=== PATIENT | male | born 1980 | race Caucasian/White ===

== ENCOUNTER 2017-01-07 08:45 | Inpatient (IN) | payer OTHER ==
[~2017-01-07] VITALS: Ht 172.7 cm; Wt 81.6 kg
[2017-01-08] MEDS ORDERED: CITA20TA11 PO (15:54)
[2017-01-08] MEDS ORDERED: METH20TA9 PO (15:56)
[2017-01-08 16:00] VITALS: BP 148/98
[2017-01-08 16:22] LABS: *AMPHETAMINE, URINE NEGATIVE (NEGATIVE); *BARBITURATE, URINE NEGATIVE (NEGATIVE); *CANNABINOID, URINE NEGATIVE (NEGATIVE); *COCCAINE, URINE NEGATIVE (NEGATIVE); *OPIATE, URINE NEGATIVE (NEGATIVE); *PHENCYCLIDINE SCREEN,URINE NEGATIVE (NEGATIVE)
[2017-01-08] MEDS ORDERED: THIAMINE HCL 200 MG/2 ML VIAL IM ONE (16:30)
[2017-01-08] MEDS ORDERED: MIRALAX 17 GM POWD.PACK PO PRN (16:30)
[2017-01-08] MEDS ORDERED: MAGNESIUM HYDROXIDE 30 ML LIQUID UDC PO PRN (16:30)
[2017-01-08] MEDS ORDERED: LOPERAMIDE HCL 2 MG CAPSULE PO PRN ×2 (16:30)
[2017-01-08] MEDS ORDERED: ONDANSETRON ODT 4 MG TAB.RAPDIS SL PRN (16:30)
[2017-01-08] MEDS ORDERED: ONDANSETRON 4 MG/2 ML VIAL IM PRN (16:30)
[2017-01-08] MEDS ORDERED: HYDROXYZINE PAMOATE 25 MG CAPSULE PO PRN (16:30)
[2017-01-08] MEDS ORDERED: MAG HYDROX/AL HYDROX/SIMETH 30 ML LIQUID UDC PO PRN (16:30)
[2017-01-08] MEDS ORDERED: CLONIDINE HCL 0.1 MG TABLET PO PRN (16:30)
[2017-01-08] MEDS ORDERED: LORAZEPAM 1 MG TABLET PO PRN ×2 (16:30)
[2017-01-08] MEDS ORDERED: IBUPROFEN 400 MG TABLET PO PRN (16:30)
[2017-01-08] MEDS ORDERED: ACETAMINOPHEN 325 MG TABLET PO PRN (16:30)
[2017-01-08] MEDS ORDERED: LORAZEPAM 2 MG/1 ML VIAL IM PRN (16:30)
[2017-01-08] MEDS ORDERED: DICYCLOMINE HCL 20 MG TABLET PO PRN (16:30)
--- NOTE | 2017-01-08 16:40 | NUR ---
ADMISSION NOTE Pt is a 36 year old male, admitted on 01/09/16 at 1600 for ETOH and Benzo Dependence and medically supervised withdrawals. Pts skin and body check completed, no contraband found, Pt has a small healed scab on his forehead. Pt awake, alert, oriented x 4, gait steady, pt is ambulatory without assistance. Pt weights 180 pounds and his height is 58. Denies any history of seizures. Pt escorted to room 320 where the rest of assessment was completed. Pt is primary source of information, information consistent, speech coherent. Pt brought home medications which have been reconciled. Pt refused PNA Vaccinations stating that he will receive it somewhere else. Pt states that he does not have a PCP and pt denies having a psychiatrist or a psychologist. Pt requested to be full code, regular diet on fall and seizure precautions, Pt denies any food allergies but states he is allergic to PNC. His last BM was on 01/07/17. Pt states that he lives in a house with his girlfriend. Pt denies smoking cigarettes. Pt denies being admitted to a hospital in the past 30 days, Pt is not a candidate for MRSA. Pts initial vital signs are BP: 1148/98, Temp: 98.3, Pulse: 89 SPO2: 98% RR:18 and states that he has 0/10 pain. Pts initial CIWA was a 3. Pt reports PMH of Anxiety, Depression, ADHD. Pts longest sobriety lasted 1 month which was from September 2015 to October 2015. Pt stated that he does not attend AA meetings. Pt reported family history of abuse, his grandfather from his mothers side was an alcoholic. Pt denies any suicidal or homicidal ideations. Substance use Hx: 1.ETOH Vodka/wine: Pt reported first drinking when he was 16 years of age, he has been drinking 1 bottle (750ml) of vodka daily for the past 4 weeks, his last use was on 01/07/17 and he stated that he drank 1 bottle of vodka. 2.Valium: Pt stated that he first used a Valium 3 months ago he has it prescribed to decrease his ETOH withdrawals, he reports taking 5mg occasionally . His last dose was today 5mg PO prior to arriving to facility. Rehab history: Pt denies any rehab history, it his first time in treatment. Pt cooperative, appears depressed, reports moderate anxiety. Educated on relaxation techniques (deep breathing) pt verbalized understanding. Pt denies SI/HI at this time, denies hallucinations. Skin warm and moist from sweat, color pink, consistent throughout the body. Eyes PERLLA, tremors not noted but felt. Pt denied tingling. All extremities with full ROM. Lung sounds clear bilaterally, no cough present, pt denies SOB. Heart rate regular. Cap refill <3 sec. No edema noted. Abdomen soft, round, bowel sounds active x 4, non tender. Pt denies urinary difficulties, urine was provided and sent to lab. Pt oriented to unit, room, equipment, shown how to use call light, provided returned demonstration. Fall precautions and seizure in place. Side rails up x2, call light within reach, bed locked in low position. MD contacted and aware of patients condition. All admitting orders have been placed, Pt will be on PRN Ativan for today. Pt is placed on a 5 day Ativan taper which starts tomorrow. Pt refused his Vitamin B injection. His Initial CIWA score was a 3.
[2017-01-08 17:45] LABS: BASOPHILS # (AUTO) 0.1 K/uL (0.0-8.0); BASOPHILS % (AUTO) 0.8 % (0.0-2.0); EOSINOPHILS # (AUTO) 0.1 K/uL (0.0-0.7); EOSINOPHILS % (AUTO) 1.6 % (0.0-7.0); ETHANOL < 3 MG/DL (0-0); HEMATOCRIT 44.5 % (36.7-47.1); HEMOGLOBIN 15.3 g/dL (12.5-16.3); LYMPHOCYTES % (AUTO) 13.6 % (20.5-51.5); MEAN CORPUSCULAR HEMOGLOBIN 30.1 uug (23.8-33.4); MEAN CORPUSCULAR HGB CONC 34 g/dL (32.5-36.3); MEAN CORPUSCULAR VOLUME 87.9 fL (73.0-96.2); MONOCYTES # (AUTO) 0.7 K/uL (2.0-10.0); MONOCYTES % (AUTO) 9.4 % (0.0-11.0); NEUTROPHILS # (AUTO) 5.4 K/uL (1.8-8.9); NEUTROPHILS % (AUTO) 74.6 % (38.5-71.5); PLATELET COUNT (AUTO) 207 K/uL (152-348); RED BLOOD CELL COUNT(AUTO) 5.07 MIL/uL (4.06-5.63); RED CELL DISTRIBUTION WIDTH 13.6 % (12.1-16.2); WHITE BLOOD COUNT (AUTO) 7.3 K/uL (3.6-10.2)
[2017-01-08 17:50] LABS: ALANINE AMINOTRANSFERASE 66 U/L (16-63); ALBUMIN 4.1 g/dL (3.4-5.0); ALKALINE PHOSPHATASE 94 U/L (50-136); AMYLASE 39 U/L (25-115); ASPARTATE AMINOTRANSFERASE 107 U/L (15-37); CALCIUM 9.1 mg/dL (8.5-10.1); CHLORIDE 97 mmol/L (98-107); CREATININE 1.2 mg/dL (0.6-1.3); GFR 68 mL/min (>60); GLUCOSE 125 mg/dL (74-106); LIPASE 129 U/L (73-393); MAGNESIUM 1.4 mg/dL (1.8-2.4); POTASSIUM 3.5 mmol/L (3.5-5.1); SODIUM SERUM 139 mmol/L (136-145); TOTAL PROTEIN, SERUM 7.9 g/dL (6.4-8.2); UREA NITROGEN, BLOOD 5 mg/dL (7-18)
[2017-01-08 17:51] LABS: CARBON DIOXIDE 34 mmol/L (21-32)
[2017-01-08 17:58] LABS: HIV-1 p24 ANTIGEN NON REACTIVE (NONREACTIVE); HIV-1/2 ANTIBODY NON REACTIVE (NONREACTIVE)
[2017-01-08 18:00] LABS: THYROID STIMULATING HORMONE 1.639 mIU/mL (0.358-3.740)
[2017-01-08] MEDS ORDERED: MAGNESIUM OXIDE 400 MG TABLET PO ONE ×2 (18:15→21:00)
--- NOTE | 2017-01-08 19:18 | NUR ---
End Of Shift Pt is a 36 year old male, admitted on 01/09/16 at 1600 for ETOH and Benzo Dependence and medically supervised withdrawals. Pt weights 180 pounds and his height is 58. Denies any history of seizures. Pt requested to be full code, regular diet on fall and seizure precautions, Pt denies any food allergies but states he is allergic to PNC. His last BM was on 01/07/17. Pt denies being admitted to a hospital in the past 30 days, . Pt's Last CIWA was a 3. Pt reports PMH of Anxiety, Depression, ADHD. Pt's longest sobriety lasted 1 month which was from September 2015 to October 2015. Pt is on PRN medications if needed for withdrawals, pt will start his 5 day Ativan taper tomorrow. pt received a one time dose of Mag-OX 800mg. all information passed on to retail shift leader nurse.
[2017-01-08 20:00] VITALS: BP 150/91
--- NOTE | 2017-01-08 20:00 | NUR ---
START OF SHIFT NOTE PATIENT IN ROOM, UPON GREETING, PATIENT STATES HE'S TIRED, REPORTS HOT AND COLD, SWEATING, ANXIOUS , GENERALIZED BODY ACHES 5/10. PATIENT HAS GOOD APPETITE AND DRINKING FLUIDS WELL. RECEIVED REPORT FROM DAY SHIFT NURSE. PATIENT IS A 36 YEAR OLD MALE, ADMITTED FOR ETOH WITHDRAWAL. PATIENT IS ON 5 DAYS ATIVAN TAPER TO BE STARTED TOMORROW. PRN ATIVAN AVAILABLE. PATIENT REGULAR DIET AND ALLERGIC TO PENICILLIN. PATIENT REPORTS PMH OF ANXIETY, DEPRESSION, ADHD AND NO SEIZURE HISTORY. PATIENT WITH HEALED SCAB ON FOREHEAD. PATIENT DID NOT REQUIRE ANY PRN MEDICATION . LAST CIWA 3. MAGNESIUM LEVEL IS 1.4-REPLACED WITH MAG OXIDE. ON FALL/SEIZURE PRECAUTION. SAFETY MEASURES IN PLACE. CALL LIGHT IN REACH. WILL CONTINUE TO MONITOR.
[2017-01-08] MEDS ORDERED: PATIENT MAY USE OWN MED- MD OK PO ONE (21:00)
[2017-01-08] MEDS ORDERED: LORAZEPAM 1 MG TABLET PO SCH (21:00)
--- NOTE | 2017-01-08 21:04 | NUR ---
ONE TIME ATIVAN ADMINISTRATION PATIENT ANXIOUS, IRRITABLE, C/O SWEATING, HOT AND COLD. CIWA 6. PATIENT WAS GIVEN ONE TIME ATIVAN ORDERED PER DR. TELLO. WILL MONITOR FOR EFFECTIVENESS.
[2017-01-08] MEDS: diphenhydrAMINE 50 MG CAPSULE PO PRN (21:08)
--- NOTE | 2017-01-08 21:08 | NUR ---
PRN BENADRYL ADMINISTRATION PATIENT REQUESTS FOR SLEEP AID . PRN BENADRYL GIVEN. WILL MONITOR FOR EFFECTIVENESS
--- NOTE | 2017-01-08 22:04 | NUR ---
ONE TIME ATIVAN RE-ASSESSMENT PATIENT STATES HIS ANXIETY SUBSIDED, LESS ANXIOUS. CIWA IS NOW 2. WILL CONTINUE TO MONITOR.
--- NOTE | 2017-01-08 22:15 | NUR ---
YIN TARIQ RE-ASSESSMENT PATIENT IN BED ASLEEP. RESPIRATION EVEN AND UNLABORED. SAFETY MEASURES IN PLACE. CALL LIGHT IN REACH. WILL CONTINUE TO MONITOR
[2017-01-09] VITALS: BP 138/70
[2017-01-09] MEDS ORDERED: FLUT9.9S NS (01:38)
[2017-01-09 04:00] VITALS: BP 126/87
--- NOTE | 2017-01-09 07:31 | NUR ---
END OF SHIFT NOTE PATIENT ALERT AND ORIENTED X 3. RESPIRATION EVEN AND UNLABORED. PATIENT IN ROOM MOST OF THE SHIFT. PATIENT IS ON 5 DAY ATIVAN TAPER TO START TOMORROW FOR ETOH DEPENDENCE. PATIENT WAS GIVEN ONE TIME ATIVAN ORDERED FOR CIWA 6 AT 2107.. PATIENT STATES HE'S TIRED, REPORTS HOT AND COLD, SWEATING, ANXIOUS , GENERALIZED BODY ACHES 5/10. UPON RE-ASSESSMENT PATIENT CIWA DOWN TO 2. PATIENT REQUESTS FOR SLEEP AID AT 2107. PATIENT HAS GOOD APPETITE AND DRINKING FLUIDS WELL. PATIENT COMPLIANT WITH MEDICATION AND TREATMENT PLAN. ENCOURAGE TO ATTEND GROUPS. PATIENT ON FALL/SEIZURE PRECAUTION. SAFETY MEASURES IN PLACE. CALL LIGHT IN REACH. WILL CONTINUE TO MONITOR. SLEPT 8 HOURS. FLUID [id number] ML. VOIDED X 1 . NO BM. LAST CIWA 1.
--- NOTE | 2017-01-09 07:35 | NUR ---
Start of shift Report received from customer account executive nurse. Patient is a 36 year old male, admitted for ETOH and BNZ medically supervised withdrawal. Pt full code regular diet reports being allergic to PCN is on fall and seizure precautions. Patient is on 5 days Ativan taper to be started today. Patient reports PMH of anxiety, depression, ADHD and no seizure history. Patient with healed scab on forehead. Pt received PRN Benadryl last night for sleep. upon greeting, patient states he's tired, reports hot and cold, sweating and feeling anxious . Patient has good appetite and drinking fluids well. Last CIWA 1 taken at 0400. Safety measures in place. Call light in reach. Will continue to monitor and provide support.
[2017-01-09 08:00] VITALS: BP 130/86
[2017-01-09 08:29] LABS: ALBUMIN 3.7 g/dL (3.4-5.0); BILIRUBIN,DIRECT 0.2 mg/dL (0.0-0.2); BILIRUBIN,TOTAL 1.1 mg/dL (0.2-1.0); PHOSPHOROUS 3.6 mg/dL (2.5-4.9); TOTAL PROTEIN, SERUM 7.2 g/dL (6.4-8.2)
[2017-01-09] MEDS ORDERED: TUBERCULIN,PURIF.PROT.DERIV. 5 TU/0.1 ML TEST ID ONE (09:00)
[2017-01-09] MEDS: MULTIVITAMINS,THERAPEUTIC TABLET PO SCH (09:36)
[2017-01-09] MEDS: LORAZEPAM 1 MG TABLET PO SCH ×4 (09:37→20:10)
[2017-01-09] MEDS: THIAMINE HCL 100 MG TABLET PO SCH (09:37)
[2017-01-09] MEDS: FOLIC ACID 1 MG TABLET PO SCH (09:37)
[2017-01-09 12:00] VITALS: BP 149/101
[2017-01-09] MEDS ORDERED: PATIENT MAY USE OWN MED- MD OK NS PRN (13:45)
[2017-01-09 16:00] VITALS: BP 142/95
--- NOTE | 2017-01-09 19:31 | NUR ---
End of Shift Report given to second shift supervisor nurse. Pt is a 36 year old male, ETOH and Benzo Dependence and medically supervised withdrawals. Denies any history of seizures. Pt requested to be full code, regular diet on fall and seizure precautions, Pt denies any food allergies but states he is allergic to PNC. Pt started his 5 day Ativan taper tolerating well. Pt received PPD on his right arm today, documented and filed in his chart, to be reassessed on 01/11/17 Pt's Last CIWA was a 3 taken at 1600. Pt reports PMH of Anxiety, Depression, ADHD. Pt did not receive any PRN medications during the day. Pt participated in groups and activities. all scheduled medications have been administered, pt stated that his treatment is improving his condition and controlling his withdrawal symptoms. Pt denies any N/V/D is alert and oriented x4 all vitals WNL. Pts total fluid intake was 2151ml with 3 voids and 2 bowel movements.Pt was encouraged to participate in activities groups and treatment plan. all safety measures in place.
[2017-01-09 20:00] VITALS: BP 141/89
--- NOTE | 2017-01-09 20:00 | NUR ---
START OF SHIFT NOTE START OF SHIFT NOTE PATIENT IN ROOM, ALERT AND ORIENTED X 4. RESPIRATION EVEN AND UNLABORED. PATIENT STATES HE' FEELS MUCH BETTER AND MEDICATIONS ARE WORKING WELL IN CONTROLLING HIS WITHDRAWAL SYMPTOMS. PATIENT STATES HIS MEDS WERE GIVEN JUST IN TIME. NO N/V, REPORTS HOT AND COLD, SWEATING. HE ATTENDED ALL GROUPS . DENIES ANY PAIN. RECEIVED REPORT FROM DAY SHIFT NURSE. PATIENT DID NOT RECEIVE ANY PRN MEDICATION DURING THE DAY . LAST CIWA 3. PATIENT'S BLOOD PRESSURE SLIGHTLY ELEVATED. PATIENT IS A 36 YEAR OLD MALE, ADMITTED FOR ETOH WITHDRAWAL. PATIENT IS 1ST DAY OF HIS 5 DAY ATIVAN TAPER. PATIENT FULL CODE, REGULAR DIET AND ALLERGIC TO PENICILLIN. PATIENT REPORTS PMH OF ANXIETY, ADHD AND DEPRESSION. NO SEIZURE HISTORY. PATIENT WITH HEALED SCAB ON FOREHEAD. ON FALL/SEIZURE PRECAUTION. SAFETY MEASURES IN PLACE. CALL LIGHT IN REACH. WILL CONTINUE TO MONITOR.
[2017-01-09] MEDS: CITALOPRAM 20 MG TABLET PO SCH (20:09)
[2017-01-09] MEDS ORDERED: PATIENT MAY USE OWN MED- MD OK PO ONE (21:00)
[2017-01-09] MEDS: diphenhydrAMINE 50 MG CAPSULE PO PRN (22:14)
--- NOTE | 2017-01-09 22:14 | NUR ---
PRN BENADRYL ADMINISTRATION PATIENT REQUESTS FOR SLEEP AID. PRN BENADRYL GIVEN. WILL CONTINUE TO MONITOR
[2017-01-10] VITALS: BP 132/84
--- NOTE | 2017-01-10 01:59 | NUR ---
START OF SHIFT NOTE PATIENT IN ROOM, ALERT AND ORIENTED X 4. RESPIRATION EVEN AND UNLABORED. PATIENT STATES HE' FEELS MUCH BETTER AND MEDICATIONS ARE WORKING WELL IN CONTROLLING HIS WITHDRAWAL SYMPTOMS. PATIENT STATES HIS MEDS WERE GIVEN JUST IN TIME. NO N/V, REPORTS HOT AND COLD, SWEATING. HE ATTENDED ALL GROUPS . DENIES ANY PAIN. RECEIVED REPORT FROM DAY SHIFT NURSE. PATIENT DID NOT RECEIVE ANY PRN MEDICATION DURING THE DAY . LAST CIWA 3. PATIENT'S BLOOD PRESSURE SLIGHTLY ELEVATED. PATIENT IS A 36 YEAR OLD MALE, ADMITTED FOR ETOH WITHDRAWAL. PATIENT IS 1ST DAY OF HIS 5 DAY ATIVAN TAPER. PATIENT FULL CODE, REGULAR DIET AND ALLERGIC TO PENICILLIN. PATIENT REPORTS PMH OF ANXIETY, ADHD AND DEPRESSION. NO SEIZURE HISTORY. PATIENT WITH HEALED SCAB ON FOREHEAD. ON FALL/SEIZURE PRECAUTION. SAFETY MEASURES IN PLACE. CALL LIGHT IN REACH. WILL CONTINUE TO MONITOR. Addendum: 01/10/17 at 0401 by VANESSA BOO LVN ERROR :DUPLICATE
[2017-01-10 04:00] VITALS: BP 124/80
--- NOTE | 2017-01-10 07:08 | NUR ---
END OF SHIFT NOTE ALERT AND ORIENTED X 4. RESPIRATION EVEN AND UNLABORED. PATIENT STATES HE' FEELS MUCH BETTER AND MEDICATION IS WORKING WELL IN CONTROLLING HIS WITHDRAWAL SYMPTOMS. PATIENT STATES HIS MEDS WERE GIVEN JUST IN TIME. NO N/V, REPORTS HOT AND COLD., SWEATING. HE ATTENDED ALL GROUPS . DENIES ANY PAIN. PATIENT WAS GIVEN PRN BENADRYL FOR SLEEP ART 2214. PATIENT COMPLIANT WITH MEDICATION AND TREATMENT PLAN. ON FALL/SEIZURE PRECAUTION. SAFETY MEASURES IN PLACE. CALL LIGHT IN REACH. WILL CONTINUE TO MONITOR. SLEPT 6 HOURS. FLUID INTAKE 500 ML. VOIDED X 1. NO BM. LAST CIWA 1
--- NOTE | 2017-01-10 07:33 | NUR ---
BEGINNING OF SHIFT Patient endorsement report received from shift commander nurse, all pertinent information discussed. patient is a 36 year old male admitted on 01/08/2017 with admitting Dx: etoh dependence. Patient with past medical history of: anxiety, ADHD, and depression. with past medical history of: etoh 1 bottle daily for 4 weeks, Valium 5mg daily for 3 months. received PRN: Benadryl during shift commander, per shift commander medication was effective. slept for 6 hours. Patient received in room awake, alert and oriented. educated regarding plan of care for the day, and medication regimen. safety measures in place. call light kept with in reach, will continue to monitor.
[2017-01-10 07:46] LABS: ALBUMIN 3.4 g/dL (3.4-5.0); BILIRUBIN,DIRECT 0.2 mg/dL (0.0-0.2); BILIRUBIN,TOTAL 0.9 mg/dL (0.2-1.0); CALCIUM 8.6 mg/dL (8.5-10.1); CREATININE 0.9 mg/dL (0.6-1.3); PHOSPHOROUS 4.3 mg/dL (2.5-4.9); POTASSIUM 4.1 mmol/L (3.5-5.1); TOTAL PROTEIN, SERUM 6.9 g/dL (6.4-8.2)
[2017-01-10 08:40] VITALS: BP 139/95
[2017-01-10] MEDS: LORAZEPAM 1 MG TABLET PO SCH ×3 (08:40→20:33)
[2017-01-10] MEDS: FOLIC ACID 1 MG TABLET PO SCH (08:40)
[2017-01-10] MEDS: MULTIVITAMINS,THERAPEUTIC TABLET PO SCH (08:40)
[2017-01-10] MEDS: THIAMINE HCL 100 MG TABLET PO SCH (08:41)
[2017-01-10 12:14] LABS: HCV AB <0.1 s/co ratio (0.0-0.9); HEPATITIS B CORE AB, IgM Negative (Negative); HEPATITIS B SURFACE AG Negative (Negative)
[2017-01-10 13:48] VITALS: BP 139/95
[2017-01-10 17:31] VITALS: BP 141/85
--- NOTE | 2017-01-10 19:08 | NUR ---
END OF SHIFT Patient alert and oriented x4, vital signs were stable during shift, patient compliant with therapeutic plan of care. Patient with admitting Dx: etoh dependence. Continues on 5 day Ativan taper as ordered and is currently on day 2 of taper, well tolerated, no ASE noted. 0900 presented with: anxiety and barely sweating with ciwa score of: 4; 1300 assessment patient presented with: anxiety and barely sweating with ciwa score of: 4; 1700 assessment patient presented with: mild anxiety with ciwa score of: 1. Medication effective as evident by decrease in ciwa score. Was administered no PRNs medication during shift. Patient encouraged increase in PO fluid intake as tolerated. Patient encouraged to attend group therapies/sessions to learn new coping skills to prevent relapse, noted attending and participating, denies SI/HI. Patient encouraged adequate PO fluid intake as tolerated. Safety measures in place. will continue to monitor. safety measures in place. Patient endorsed to overnight houseperson nurse, all pertinent information discussed.
[2017-01-10 20:00] VITALS: BP 137/86
--- NOTE | 2017-01-10 20:00 | NUR ---
START OF SHIFT NOTE PATIENT IN ROOM, WATCHING TV. PATIENT ALERT AND ORIENTED X 4. RESPIRATION EVEN AND UNLABORED. PATIENT ATTENDED GROUPS. NO N/V. REPORTS ANXIETY , CHILLS AND SWEATING. DENIES ANY PAIN AT THIS TIME. PER DAY SHIFT NURSE, PATIENT DID NOT REQUIRE ANY PRN MEDICATION DURING THE DAY. LAST CIWA 1. DR. TELLO AWARE OF AST AND ALT LAB RESULT. PATIENT IS ON 2ND DAY OF HIS 5 DAY ATIVAN TAPER , TOLERATED WELL. PATIENT FULL CODE, REGULAR DIET AND ALLERGIC TO PENICILLIN. PATIENT REPORTS PMH OF ANXIETY, ADHD AND DEPRESSION. PATIENT WITH HEALED SCAB ON FOREHEAD. ON FALL/SEIZURE PRECAUTION. SAFETY MEASURES IN PLACE.CALL LIGHT IN REACH. WILL CONTINUE TO MONITOR.
[2017-01-10] MEDS: diphenhydrAMINE 50 MG CAPSULE PO PRN (20:33)
[2017-01-10] MEDS: CITALOPRAM 20 MG TABLET PO SCH (20:33)
--- NOTE | 2017-01-10 20:33 | NUR ---
PRN BENADRYL ADMINISTRATION PATIENT REQUESTS FOR SLEEP AID. PRN BENADRYL GIVEN. WILL MONITOR FOR EFFECTIVENESS
--- NOTE | 2017-01-10 22:00 | NUR ---
PRN BENADRYL RE-ASSESSMENT PATIENT IN BED WITH EYES CLOSED. RESPIRATION EVEN AND UNLABORED. SAFETY MEASURES IN PLACE. CALL LIGHT IN REACH. WILL CONTINUE TO MONITOR.
[2017-01-11] VITALS: BP 113/56
[2017-01-11 04:00] VITALS: BP 113/79
--- NOTE | 2017-01-11 07:20 | NUR ---
Start of Shift Report from night nurse: Pt is 36 y/o male her of EtOH r/t Vodka and wine 1 bottle of 750mL/d for 4 weeks and Valium 5 mg PO/d; 5 day Ativan taper ordered and started 01/09/17. Pt is a full code, regular diet, allergic to PCN, fall and seizure precautions ordered. Hhx: Anxiety, depression and ADHD and fist time doing detox. V/S stable. Skin is intact. No new orders or recommendations endorsed to me. PRN Benadryl given last night for sleep. Last CIWA 1. Pt is in room asleep. Will cont. to monitor the pt.
--- NOTE | 2017-01-11 07:29 | NUR ---
END OF SHIFT NOTE PATIENT ALERT AND ORIENTED X 4. RESPIRATION EVEN AND UNLABORED. PATIENT REPORTS ANXIETY, RUNNY NOSE, SWEATING, STOMACH CRAMPS , MILD JOINT ACHES. NO N/V. PATIENT WAS SEEN BY DR. TELLO DURING THE DAY AND STARTED HER ON MODIFIED 2 DAY SUBUTEX TAPER. PATIENT WAS GIVEN PRN MOM DURING SHIFT, INEFFECTIVE. ENCOURAGE FLUIDS. PATIENT WITH RIGHT ANKLE INSECT BITE, TRACK HENDERSON ON NECK AND BILATERAL THIGH PICK HENDERSON. ON FALL/SEIZURE PRECAUTION. SAFETY MEASURES IN PLACE. CALL LIGHT IN REACH. WILL CONTINUE TO MONITOR. PATIENT SLEPT 6 HOURS. FLUID INTAKE 828 ML. VOIDED X 2. NO BM. LAST COWS 1. Addendum: 01/11/17 at 0731 by VANESSA BOO LVN ERROR : CHARTING IS FOR ANOTHER PATIENT
--- NOTE | 2017-01-11 07:32 | NUR ---
END OF SHIFT NOTE PATIENT ALERT AND ORIENTED X 4. RESPIRATION EVEN AND UNLABORED. PATIENT ATTENDED GROUPS. NO N/V. REPORTS ANXIETY , CHILLS AND SWEATING THE BEGINNING OF SHIFT. PATIENT REQUESTS FOR SLEEP AID, PRN BENADRYL WAS GIVEN AT 2045 , EFFECTIVE. PATIENT COMPLIANT WITH MEDICATIONS AND TREATMENT PLAN. ON FALL/SEIZURE PRECAUTION. SAFETY MEASURES IN PLACE.CALL LIGHT IN REACH. WILL CONTINUE TO MONITOR. SLEPT 7 HOURS.FLUID INTAKE 1,210 ML. VOIDED X 2. NO BM. LAST CIWA 1.
[2017-01-11 08:00] VITALS: BP 126/81
[2017-01-11] MEDS: FOLIC ACID 1 MG TABLET PO SCH (09:01)
[2017-01-11] MEDS: MULTIVITAMINS,THERAPEUTIC TABLET PO SCH (09:01)
[2017-01-11] MEDS: LORAZEPAM 1 MG TABLET PO SCH ×4 (09:01→20:39)
[2017-01-11] MEDS: THIAMINE HCL 100 MG TABLET PO SCH (09:39)
[2017-01-11 12:00] VITALS: BP 120/72
[2017-01-11 16:00] VITALS: BP 134/80
--- NOTE | 2017-01-11 19:31 | NUR ---
End of the Shift Report to the night : Pt is 36 y/o male her of EtOH r/t Vodka and wine 1 bottle of 750mL/d for 4 weeks and Valium 5 mg PO/d; 5 day Ativan taper ordered and started 01/09/17. Pt is a full code, regular diet, allergic to PCN, fall and seizure precautions ordered. Hhx: Anxiety, depression and ADHD and first time doing detox. Pt denies chest pain, no SOB present. V/S stable. Skin is intact. no hallucinations delusions or suicidal ideations noted.No PRN Medication's given during my shift. Pt attended group therapy and activities during my shift. Last CIWA 1
--- NOTE | 2017-01-11 19:45 | NUR ---
Start of Shift Note: Report received from day shift nurse. Pt is a 36 yo male admitted on 01/08/17 for medically-supervised withdrawal from ETOH and Valium. Pt reports drinking 750mL vodka or wine daily for 4 weeks and taking Valium 5mg daily for 3 months. Pt is on the third day of a 5-day Ativan taper. Last day shift CIWA=1. Pt is on a regular diet. Pt reports allergy to PCN. Pt reports med hx: anxiety, depression, and ADHD. Pt is currently in room resting, reports that taper medication has been effective in managing s/s of withdrawal. All safety precautions are in place. Will continue to monitor.
[2017-01-11 20:00] VITALS: BP 149/80
[2017-01-11] MEDS: CITALOPRAM 20 MG TABLET PO SCH (20:39)
[2017-01-11] MEDS: diphenhydrAMINE 50 MG CAPSULE PO PRN (22:16)
--- NOTE | 2017-01-11 22:17 | NUR ---
RN note PRN Benadryl Pt c/o inability to sleep. Administered Benadryl 50 mg PO as ordered.
--- NOTE | 2017-01-11 23:15 | NUR ---
PRN Reassessment: Pt is in bed with eyes closed. Respirations are even and unlabored. No s/s of acute distress noted. PRN Benadryl effective AEB pt's ability to rest. Will continue to monitor.
[2017-01-12] VITALS: BP 136/97
--- NOTE | 2017-01-12 | NUR ---
CIWA Deferred: CIWA assessment deferred for sleep. V/S: 98.2, 79, 16, 99%, 136/97. All safety precautions are in place. Will continue to monitor. Addendum: 01/12/17 at 0319 by CHAS PEREZ RN Amended: Links added.
[2017-01-12 04:00] VITALS: BP 135/88
--- NOTE | 2017-01-12 04:00 | NUR ---
CIWA Deferred: CIWA deferred while pt is sleeping. VS WNL. All safety precautions are in place. Will continue to monitor. Addendum: 01/12/17 at 0637 by CHAS PEREZ RN Amended: Links added.
--- NOTE | 2017-01-12 06:53 | NUR ---
End of Shift Note: Pt is a 47 yo male admitted to [facility] last night for medically-supervised withdrawal from ETOH. Pt reports med hx: Lyme disease, depression, anxiety, seizure r/t withdrawal x2 (2016, 2017), and current suicidal ideation. Pt placed on 1:1 for safety. Pt reports drinking 750-1500mL wine and/or vodka daily for 5 weeks. Pt is to start a 5-day Ativan taper today. CIWA upon admission was 16 and Ativan 2mg PO once was administered. K-dur 40meq given for K+ 3.4, and when pt was woken for administration, noted to be diaphoretic with gross tremor. PRN Ativan 2mg was given for CIWA 16. Pt noted to minimize s/s of withdrawal, when objective symptoms do not correspond with pt's report: pt denies diaphoresis when sweat is visible on face and felt on arm. V/S stable throughout shift. Total fluid intake this shift: 1000 ml; output: urine x 2 and BM x 0. Pt currently in bed and slept 7 hours this shift. Seizure precautions are in place. Pt endorsed to day shift nurse. Addendum: 01/12/17 at 0654 by CHAS PEREZ RN Disregard note. Incorrect patient.
--- NOTE | 2017-01-12 06:54 | NUR ---
End of Shift Note: Pt is a 36 yo male admitted to [facility] on 01/08/17 for medically-supervised withdrawal from ETOH and Valium. Pt reports med hx: anxiety, depression, and ADHD. Pt is on a regular diet. Pt reports allergy to PCN. Pt reports drinking 750mL vodka or wine daily for 4 weeks and taking Valium 5mg daily for 3 months. Pt is to start the fourth day of a 5-day Ativan taper. Scheduled medication regime effectively managed s/s of withdrawal this shift and CIWA scores remained low. Last CIWA=1 at 20:00. PRN Benadryl was given for insomnia. V/S stable throughout shift. Total fluid intake this shift: 855 ml; output: urine x 1 and BM x 0. Pt currently in bed and slept 6 hours this shift. Pt endorsed to day shift nurse.
--- NOTE | 2017-01-12 07:50 | NUR ---
START OF SHIFT: Received pt this am AOx4. Pt states he feels "great" this morning. He presents with flat affect. He was given PRN Benadryl by director for beauty school and slept 6 hours. Pt continues on 5 day Ativan taper. WHITNEY 1 per night nurse. Encouraged groups and activities. Will continue to monitor and provide safe and supportive environment
[2017-01-12 08:00] VITALS: BP 119/81
[2017-01-12 09:08] LABS: BILIRUBIN,DIRECT 0.1 mg/dL (0.0-0.2); BILIRUBIN,TOTAL 0.5 mg/dL (0.2-1.0); CALCIUM 9.1 mg/dL (8.5-10.1); MAGNESIUM 2.1 mg/dL (1.8-2.4); POTASSIUM 4.1 mmol/L (3.5-5.1); TOTAL PROTEIN, SERUM 7.8 g/dL (6.4-8.2)
[2017-01-12] MEDS: LORAZEPAM 1 MG TABLET PO SCH ×3 (09:19→21:12)
[2017-01-12] MEDS: MULTIVITAMINS,THERAPEUTIC TABLET PO SCH (09:19)
[2017-01-12] MEDS: THIAMINE HCL 100 MG TABLET PO SCH (09:19)
[2017-01-12] MEDS: FOLIC ACID 1 MG TABLET PO SCH (09:19)
[2017-01-12 12:00] VITALS: BP 140/106
[2017-01-12 16:00] VITALS: BP 140/97
--- NOTE | 2017-01-12 18:39 | NUR ---
END OF SHIFT Pt continues on 5 day Ativan taper. Pt tolerating taper well. Pt presents with brighter affect. No PRNs needed during shift. Pt attended activities today and socialized with peers. Pt is compliant with medications and treatment plan. Last CIWA 1. All needs attended to promptly. Bed locked and in lowest position with call gustafson in reach. Will pass report to oncoming nurse.
[2017-01-12 20:00] VITALS: BP 156/97
--- NOTE | 2017-01-12 20:00 | NUR ---
Start of Shift Note: Report received from day shift nurse. Pt is a 36 yo male admitted on 01/08/17 for medically-supervised withdrawal from ETOH and benzodiazepines. Pt reports drinking 750mL vodka or wine daily for 4 weeks and taking Valium 5mg daily for 3 months. Pt is on day 4 of a 5-day Ativan taper. Last day shift CIWA=1. Pt reports allergy to PCN. Pt is on a regular diet. Pt reports med hx: anxiety, depression, and ADHD. Pt is currently in room resting. Encouraged continued group participation and socialization with other clients. All safety precautions are in place. Will continue to monitor.
[2017-01-12] MEDS: CITALOPRAM 20 MG TABLET PO SCH (21:12)
[2017-01-12] MEDS: diphenhydrAMINE 50 MG CAPSULE PO PRN (21:12)
--- NOTE | 2017-01-12 21:12 | NUR ---
PRN Benadryl: Patient complains of inability to sleep. Non-pharmacological measures not effective. Administered PRN Benadryl 25mg PO as ordered. Will continue to monitor.
--- NOTE | 2017-01-12 22:15 | NUR ---
Reassessment: Patient is in bed with eyes closed. Respirations are even and unlabored. No s/s of acute distress noted. PRN Benadryl effective AEB patient's ability to rest. All safety precautions are in place. Will continue to monitor.
[2017-01-13] VITALS: BP 120/77
--- NOTE | 2017-01-13 | NUR ---
CIWA Deferred: CIWA assessment is deferred for sleep. VS: 97.5, 75, 14, 98%, 120/77. All safety precautions are in place. Will continue to monitor. Addendum: 01/13/17 at 0055 by CHAS PEREZ RN Amended: Links added.
[2017-01-13 04:00] VITALS: BP 125/80
--- NOTE | 2017-01-13 04:00 | NUR ---
CIWA Deferred: CIWA assessment is deferred for sleep. VS: 97.3, 60, 16, 98%, 125/80. All safety precautions are in place. Will continue to monitor. Addendum: 01/13/17 at 0507 by CHAS PEREZ RN Amended: Links added.
--- NOTE | 2017-01-13 06:52 | NUR ---
End of Shift Note: Pt is a 36 yo male admitted to [facility] on 01/08/17 for medically-supervised withdrawal from ETOH and Valium. Pt reports med hx: anxiety, depression, and ADHD. Pt reports allergy to PCN and is on a regular diet. Pt reports drinking 750mL vodka or wine daily for 4 weeks and taking Valium 5mg daily for 3 months. Pt is to start the last day of a 5-day Ativan taper. Scheduled medication regime effectively managed s/s of withdrawal this shift and CIWA scores remained low. Last CIWA=1 at 20:00. PRN Benadryl was given for inability to sleep. V/S stable throughout shift, with HR slightly elevated at 104 (20:00) and BP 156/94 (20:00). Total fluid intake this shift: 1550 ml; output: urine x 3 and BM x 0. Pt currently in bed and slept 8 hours this shift. Pt endorsed to day shift nurse.
--- NOTE | 2017-01-13 08:19 | NUR ---
BEGINNING OF SHIFT Patient endorsement report received from welder 2nd shift nurse, all pertinent information discussed. patient is a 36 year old male admitted on 01/08/2017 with admitting Dx: etoh dependence. Patient with past medical history of: anxiety, ADHD, and depression. with past medical history of: etoh 1 bottle daily for 4 weeks, Valium 5mg daily for 3 months. received PRN: Benadryl during welder 2nd shift, per welder 2nd shift medication was effective. slept for 7 hours. Patient palced on a 5 day ativan taper as ordered and is on day 5 of taper. Patient received in room awake, alert and oriented. educated regarding plan of care for the day, and medication regimen. safety measures in place. call light kept with in reach, will continue to monitor.
[2017-01-13 08:28] VITALS: BP 132/86
[2017-01-13] MEDS: THIAMINE HCL 100 MG TABLET PO SCH (08:50)
[2017-01-13] MEDS: LORAZEPAM 1 MG TABLET PO SCH ×2 (08:51→20:29)
[2017-01-13] MEDS: FOLIC ACID 1 MG TABLET PO SCH (08:51)
[2017-01-13] MEDS: MULTIVITAMINS,THERAPEUTIC TABLET PO SCH (08:51)
--- NOTE | 2017-01-13 10:07 | NUR ---
PRN IMODIUM Patient reports two episodes of diarrhea, patients abdomen is soft and non distended, bowel sounds heard in all quadrants patient administered Imodium as ordered for first bout of diarrhea. will monitor effectiveness.
--- NOTE | 2017-01-13 11:07 | NUR ---
IMODIUM REASSESSMENT Patient reports no further episodes of diarrhea noted, diarrhea ceased, will continue to monitor closely.
[2017-01-13 13:15] VITALS: BP 130/85
[2017-01-13 17:54] VITALS: BP 138/87
--- NOTE | 2017-01-13 18:57 | NUR ---
START OF SHIFT NOTE Patient endorsed by day shift nurse. SBAR report received. Patient is a 36 y.o. male admitted to [facility] on 01/08/2017 for Alcohol and Marijuana Dependence, placed on 5 Day Ativan Taper. Allergy to Penicillin, Regular Diet, Full Code , Seizures and Fall Precautions. Patient denied History of Seizures. Patient alert and oriented x4. CIWA 3: Patient presented with mild anxiety, agitation, tremors that can felt, and sweating. Patient denied N/V, and diarrhea. Patient denied SI/HI. VS WNL. Face is symmetrical. Speech is clear and soft. PERRLA: pupils bilaterally:+3. No glasses/lenses. Mouth: Lips and tongue are pink. No dentures Breathing Sounds is unlabored and even. Patient denies SOB/Chest pain. Lung Sounds are clear bilaterally. BS are active in all x4 quadrants. Last BM's " today, in the morning ". Skin is intact, warm and moist by touch. Patient has healed scab on forehead. Patient remains compliant with treatment, medications, and diet regime. Patient educated for adequate hydration. Patient returned his knowledge back by verbalizing understanding. Safety measures in the place by hospital policy: Call light within reach, rails up x2; bed in low position and locked. All needs are met by hospital policy. Will continue to monitor closely.
--- NOTE | 2017-01-13 18:57 | NUR ---
END OF SHIFT Patient alert and oriented x4, vital signs were stable during shift, patient compliant with therapeutic plan of care. Patient with admitting Dx: etoh dependence. Continues on 5 day Ativan taper as ordered and is currently on day 5 of taper, well tolerated, no ASE noted. 0900 assessment patient presented with: mild anxiety with ciwa score of: 1; 1300 assessment patient presented with: mild anxiety; 1700 assessment patient presented with: mild anxiety with ciwa score of: 1. Patient received PRN Imodium as ordered 4mg Po for diarrhea. Medication effective, no further episodes of diarrhea noted . Patient encouraged increase in PO fluid intake as tolerated. Patient encouraged to attend group therapies/sessions to learn new coping skills to prevent relapse, noted attending and participating, denies SI/HI. Patient encouraged adequate PO fluid intake as tolerated. Safety measures in place. will continue to monitor. safety measures in place. Patient endorsed to shift superintendent nurse, all pertinent information discussed.
[2017-01-13 20:00] VITALS: BP 139/85
[2017-01-13] MEDS: CITALOPRAM 20 MG TABLET PO SCH (20:29)
[2017-01-13] MEDS: PATIENT MAY USE OWN MED- MD OK NS SCH (20:36)
[2017-01-13] MEDS: diphenhydrAMINE 50 MG CAPSULE PO PRN (20:41)
--- NOTE | 2017-01-13 20:41 | NUR ---
PRN BENADRYL PO ADMINISTRATION Patient c/o insomnia. Patient was assessed. PRN Benadryl PO was discussed. Patient 's educated for actions, adverse reactions and side effects of Benadryl. Patient returned back his knowledge by verbalizing understanding. PRN Benadryl PO was administrated as ordered with full glass of water. Patient tolerated well. Will reassessing in one hour. Safety measures on the place by hospital policy: Call light within reach; Bed is low position, and locked; side rails up x2. Will continue to monitor closely.
[2017-01-13] MEDS ORDERED: FLUTICASONE PROP NASAL SPRAY 16 GM BOTTLE NS SCH (21:00)
--- NOTE | 2017-01-13 21:41 | NUR ---
PRN BENADRYL PO REASSESSMENT Patient is sleeping. Breathing is unlabored and even RR:14. PRN Benadryl PO was effective. Safety measures on the place by hospital policy: Call light within reach; Bed is low position, and locked; side rails up x2. All needs are met by hospital policy. Will continue to monitor closely.
[2017-01-14] VITALS: BP 128/78
[2017-01-14 04:00] VITALS: BP 118/76
--- NOTE | 2017-01-14 07:10 | NUR ---
END OF SHIFT NOTE Patient endorsed to day shift nurse. SBAR report given. Patient is a 36 years old male admitted to [facility] on 01/08/2017 for Alcohol and Marijuana Dependence, placed on 5 Day Ativan Taper. Allergy to Penicillin, Regular Diet, Full Code , Seizures and Fall Precautions. Patient denied History of Seizures. Patient alert and oriented x4. CIWA decreased from 4 to 2: Patient presented with mild anxiety, agitation, tremors that can felt, and sweating. Patient denied N/V, and diarrhea. Patient denied SI/HI. VS WNL. Skin is intact, warm and moist by touch. Patient has healed scab on forehead. Patient remains compliant with treatment, medications, and diet regime. PRN Benadryl PO was effective. Patient slept 6 hours. Intake 1500 ml; Voided x4. All needs are met by hospital policy. Call Light within reach, Bed is locked and in the lowest position; Bed rails up x2. Patient endorsed to day shift nurse in stable condition. SBAR report given.
[2017-01-14 08:00] VITALS: BP 123/80
[2017-01-14] MEDS: FOLIC ACID 1 MG TABLET PO SCH (08:11)
[2017-01-14] MEDS: MULTIVITAMINS,THERAPEUTIC TABLET PO SCH (08:11)
[2017-01-14] MEDS: THIAMINE HCL 100 MG TABLET PO SCH (08:11)
--- NOTE | 2017-01-14 08:20 | NUR ---
START OF SHIFT Report received from machine sweeper brush maker nurse. Received patient laying in bed, awake, alert, reading a book. Patient is 36-year-old male admitted medically supervised withdrawal from alcohol. Patient is full code, allergic to PCN, on fall and seizure precautions (no history of seizures) and regular diet. On assessment this AM: CIWA: 0. Patient denies SOB/chest pain/n/v/dizziness/anxiety/insomnia at this time. Patient is calm and cooperative during the assessment. Med and treatment compliant. Patient is able to verbalize needs and express thoughts and feelings but did not verbalize and concerns and questions at this time. Encouraged patient to participate in group meetings. All needs met at this time. Call lights within reach and bed at low setting. Will continue to monitor patient.
[2017-01-14 12:00] VITALS: BP 129/93
[2017-01-14 13:42] LABS: *AMPHETAMINE, URINE NEGATIVE (NEGATIVE); *BARBITURATE, URINE NEGATIVE (NEGATIVE); *CANNABINOID, URINE NEGATIVE (NEGATIVE); *COCCAINE, URINE NEGATIVE (NEGATIVE); *OPIATE, URINE NEGATIVE (NEGATIVE); *PHENCYCLIDINE SCREEN,URINE NEGATIVE (NEGATIVE)
[2017-01-14 16:00] VITALS: BP 136/90
--- NOTE | 2017-01-14 18:29 | NUR ---
START OF SHIFT NOTE Patient endorsed by day shift nurse. SBAR report received. Patient is a 36 years old male admitted to [facility] on 01/08/2017 for Alcohol and Marijuana Dependence. 5 Day Ativan Taper completed, and patient tolerated well. Allergy to Penicillin, Regular Diet, Full Code , Seizures and Fall Precautions. Patient denied History of Seizures. Patient alert and oriented x4. Stable gate. CIWA 1: Patient presented with mild anxiety. Patient denied N/V, and diarrhea. Patient denied SI/HI. VS WNL. Face is symmetrical. Speech is clear and soft. PERRLA: pupils bilaterally:+3. No glasses/lenses. Mouth: Lips and tongue are pink. No dentures Breathing Sounds is unlabored and even. Patient denies SOB/Chest pain. Lungs Sounds are clear bilaterally. BS are active in all x4 quadrants. Last BM's " 01/14/17t 18:00 ". Skin is intact, warm and moist by touch. Patient has healed scab on forehead. Patient remains compliant with treatment, medications, and diet regime. Patient educated for fall prevention. Patient return his knowledge back by verbalizing understanding. Patient will discharging tomorrow. UDS test results placed on the chart. Safety measures in the place by hospital policy: Call light within reach, rails up x2; bed in low position and locked. All needs are met by hospital policy. Will continue to monitor closely.
--- NOTE | 2017-01-14 18:29 | NUR ---
END OF SHIFT Patient is 36-year-old male admitted medically supervised withdrawal from alcohol. Patient is full code with NKA, on fall precautions and regular diet. Patient denies SOB/chest pain/n/v/dizziness/anxiety at this time. Calm and cooperative, working on crossword puzzles, reading a book and watching TV this shift. Most recent assessment: CIWA: 0. Remains compliant with meds and treatment plan. BM X1. Possible discharge tomorrow. Tolerating diet well. All needs met. Patient did not verbalize any concern or questions at this time. RN shift will continue to monitor patient.
[2017-01-14 20:00] VITALS: BP 137/86
[2017-01-14] MEDS: diphenhydrAMINE 50 MG CAPSULE PO PRN (21:36)
[2017-01-14] MEDS: CITALOPRAM 20 MG TABLET PO SCH (21:36)
--- NOTE | 2017-01-14 21:36 | NUR ---
PRN BENADRYL PO ADMINISTRATION Patient c/o insomnia and asked sleep aid. Patient was assessed. PRN Benadryl PO was discussed. Patient educated for actions, adverse reactions and side effects of Motrin and Benadryl. Patient return back his knowledge by verbalizing understanding. PRN Benadryl PO 50 mg 1 capsule's administrated as ordered with full glass of water. Patient tolerated well. Will reassessing in one hour. Safety measures on the place by hospital policy:Call light within reach; Bed is low position, and locked; side rails up x2. Will continue to monitor closely.
[2017-01-14] MEDS: PATIENT MAY USE OWN MED- MD OK NS SCH (21:38)
--- NOTE | 2017-01-14 22:36 | NUR ---
PRN BENADRYL PO REASSESSMENT Patient is sleeping on his left site. Breathing is unlabored and even RR:15. PRN Benadryl PO was effective. All needs met. Safety measures on the place by hospital policy: Call light within reach; Bed is low position, and locked; side rails up x2. All needs are met by hospital policy. Will continue to monitor closely.
[2017-01-15] VITALS: BP 126/78
[2017-01-15 04:00] VITALS: BP 106/53
--- NOTE | 2017-01-15 07:13 | NUR ---
END OF SHIFT Patient endorsed by day shift nurse. SBAR report given. Patient is a 36 years old male admitted to [facility] on 01/08/2017 for Alcohol and Marijuana Dependence. 5 Day Ativan Taper completed, and patient tolerated well. Allergy to Penicillin, Regular Diet, Full Code , Seizures and Fall Precautions. Patient denied History of Seizures. Patient alert and oriented x4. Stable gate. Patient is cooperative. CIWA decreased from 1 to 0: Patient presented with mild anxiety. Patient denied tremors, chills, sensory disturbances, headache, confusion ,N/V, and diarrhea. Patient denied SI/HI. VS WNL. Skin is intact, warm and moist by touch. Patient has healed scab on forehead. Patient remains compliant with treatment, medications, and diet regime. Patient educated for fall prevention. Patient return his knowledge back by verbalizing understanding. Patient will discharging today. UDS test results placed on the chart PRN Benadryl was effective. Patient slept 5 hours. Intake 1390 ml . Voidedx3. Safety measures in the place by hospital policy: Call light within reach, rails up x2; bed in low position and locked. All needs are met by hospital policy. Will continue to monitor closely.
[2017-01-15 08:00] VITALS: BP 135/82
--- NOTE | 2017-01-15 08:00 | NUR ---
START OF SHIFT NOTE Received report from night nurse, 36 year old male admitted for ETOH and BENZO withdrawal. Full code regular diet reports being allergic to PCN is on fall and seizure precautions. Pt reports PMH of anxiety, depression, ADHD and no seizure history. Pt completed his 5 days Ativan taper. Pt received PRN Benadryl last night for sleep and effective per night nurse, pt slept for 5 hours, last CIWA-0. Received pt alert awake oriented x4 in stable condition. Denies any N/V/D, no pain. Pt is excited being discharge. Safety measures in place, call light within reach. Will cont to monitor.
[2017-01-15] MEDS: FOLIC ACID 1 MG TABLET PO SCH (08:29)
[2017-01-15] MEDS: MULTIVITAMINS,THERAPEUTIC TABLET PO SCH (08:29)
[2017-01-15] MEDS: THIAMINE HCL 100 MG TABLET PO SCH (08:29)
[2017-01-15 12:00] VITALS: BP 131/94
[2017-01-15 12:20] LABS: *BENZODIAZEPINES Positive (.); *NORDIAZEPAM Positive (.); *OXAZEPAM Negative (Cutoff=300)
--- NOTE | 2017-01-15 14:30 | NUR ---
DISCHARGE NOTE pt was admitted for ETOH/BENZO dependence. Last CIWA-0. vital signs WNL. Pt states that he has no pain, discomfort or s/s of withdrawal at this time. Denies any SI/HI. Pt states that he feels ready fro discharge, Verbalized his understanding of the discharge instructions. Pt medications, discharge instructions and valuables secured in duffle bag then given to TELEGRAPH INSPECTOR. All belongings returned to pt. Pt's ID band removed, pt ambulated off of unit. Pt left via [employer] [facility] via [employer].
== END 2017-01-15 14:30 | disposition other institution (70) | DRG 895 ==
LOC: SRC 01-08 14:21
PROVIDERS: ADMIT Internal Medicine; ATTEND Internal Medicine
PROC: HZ2ZZZZ Detoxification Services for Substance Abuse Treatment (ICD-10-PCS; principal; 2017-01-08)
PROC: HZ41ZZZ Group Counseling for Substance Abuse Treatment, Behavioral (ICD-10-PCS; 2017-01-10)
PROC: HZ31ZZZ Individual Counseling for Substance Abuse Treatment, Behavioral (ICD-10-PCS; 2017-01-10)
DX: F10.230 Alcohol dependence with withdrawal, uncomplicated (principal); E87.3 Alkalosis; K70.10 Alcoholic hepatitis without ascites; Y90.9 Presence of alcohol in blood, level not specified; E86.0 Dehydration; Z83.3 Family history of diabetes mellitus; Z82.49 Family history of ischemic heart disease and other diseases of the circulatory system; Z81.1 Family history of alcohol abuse and dependence; E83.42 Hypomagnesemia; F41.9 Anxiety disorder, unspecified; F90.9 Attention-deficit hyperactivity disorder, unspecified type; F32.9 Major depressive disorder, single episode, unspecified; I15.9 Secondary hypertension, unspecified; F13.90 Sedative, hypnotic, or anxiolytic use, unspecified, uncomplicated; R73.01 Impaired fasting glucose
CPT/HCPCS: 36415; 70030-TC; 80307; 80346; 83690; 83735; 84100; 84443; 85025; 86580; 86592; 86705; 86803; 87340; 87806; A4663; G6040-TC; Q0163